=== PATIENT | female | born 1960 | race Caucasian/White ===

== ENCOUNTER → 2018-05-31 09:05 | Outpatient (CLI) | payer OTHER, SELFPAY ==
[2018-05-31 11:25] LABS: Estradiol < 11.0 pg/mL
[2018-06-01 09:55] LABS: Progesterone Level 1.01 ng/mL (See Comment)
== END ==
PROVIDERS: Visit Provider Obstetrics & Gynecology
DX: N95.1 Menopausal and female climacteric states (principal); R53.82 Chronic fatigue, unspecified
CPT/HCPCS: 36415; 82670; 84144

== ENCOUNTER → 2018-12-14 11:31 | Outpatient (CLI) | payer SELFPAY ==
[2018-12-14 12:49] LABS: Estradiol < 11.0 pg/mL
[2018-12-16 09:39] LABS: HPV Reflexed? NOT INDICATED
--- OUTSIDE RECORDS SUMMARY | 2019-02-18 07:40 | XMS RPT_ITS ---
:1960 Author Organization OH[facility] Care Team Providers Name Role Phone DARY ASH Admitting Unavailable DARY ASH Attending Unavailable DARY ASH Primary Care Unavailable DARY ASH Consulting Unavailable PROVIDER, UNKNOWN Consulting Unavailable Mojgan Hill Attending Unavailable Mojgan Hill Attending Unavailable PROBLEMS PROBLEMS DATE TYPE CONDITION / CODE ATTENDING STATUS SOURCE 12/14/2018 Unknown N95.1 - Mojgan Hill Active [facility] Menopausal and [facility] female [facility] climacteric Repository states / N95.1(ICD-10) 12/14/2018 Unknown Z12.4 - Encounter Mojgan Hill for screening for [facility] malignant [facility] neoplasm of Repository cervix / Z12.4(ICD-10) 05/31/2018 Unknown R53.82 - Chronic Mojgan Hill Active [place] fatigue, [facility] unspecified / Hospital R53.82(ICD-10) Repository PROCEDURES PROCEDURES No Procedure Records FoundRESULTS RESULTS ESTRADIOL Collected: 12/14/2018 Status: F Source: YEN 11:36 AM [facility] REPOSITORY TYPE CODE TESTS RESULT OUT OF RANGE REFERENCE UNITS LAB L3300.1750 pg/mL Normal ESTRADIOL < 11.0 Result Comment: NORMAL REFERENCE RANGES FEMALE FOLLICULAR 21.4 - 164.8 pg/mL MID-CYCLE PEAK 49.9 - 367.2 pg/mL LUTEAL 40.2 - 259.0 pg/mL POST-MENOPAUSAL ON MHT <11.0 - 462.1 pg/mL NOT ON MHT <11.0 - 58.3 pg/mL MALE <11.0 - 52.5 pg/mL NOTE: [facility] HAS CONFIRMED THE DRUG FULVETRANT (FASLODEX) MAY CAUSE FALSELY ELEVATED ESTRADIOL RESULTS WHEN USING THIS TEST METHOD. IF PATIENT IS TAKING FULVESTRANT AN ALTERNATIVE METHOD SHOULD BE USED TO DETERMINE ESTRADIOL CONCENTRATION. Performed By: #### L3300.1750 #### [facility] [address] [place], [place], [address] PROGESTERONE LEVEL Collected: 12/14/2018 Status: F Source: [place] 11:36 AM [facility] REPOSITORY TYPE CODE TESTS RESULT OUT OF REFERENCE UNITS RANGE LAB L509.4001 See Comment ng/mL Progesterone Normal 1.10 Result Comment: Progesterone Reference Table: UNITS Female: Follicular 0.15 - 1.40 ng/mL Luteal 3.34 - 25.56 ng/mL Mid-luteal 4.44 - 28.03 ng/mL Postmenopausal 0.0 - 0.73 ng/mL : 1st Trimester 11.22 - 90.00 ng/mL 2nd Trimester 25.55 - 89.40 ng/mL 3rd Trimester 48.40 -422.50 ng/mL Performed By: #### L509.4001 #### [facility] [address] [place], [address] PAP I-G W/RFX HRHPV Collected: 12/14/2018 Status: F Source: [place] 11:00 AM [facility] REPOSITORY Order Comment: CYTOLOGY INFORMATION: - CLINICAL INFORMATION: HYSTERECTOMY - DATE LMP/MENOPAUSE: - COLLECTION VIAL: Thin Prep Vial - CLOTH GRADER SOURCE: VAGINAL - COLLECTION TECHNIQUE: BRUSH/SPATULA Specimen Comment: [id number] Specimen Comment: Source.............Vagina Specimen Comment: LMP / Prev Treat...Hyst Specimen Comment: No. of containers..01 ThinPrep Vial TYPE CODE TESTS RESULT OUT OF RANGE REFERENCE UNITS LAB L7400.0800 . Normal DIAGN Comment Result Comment: NEGATIVE FOR INTRAEPITHELIAL LESION OR MALIGNANCY. LAB L7400.0900 . Normal ADEQ Comment Result Comment: Satisfactory for evaluation. No endocervical cells are present. This is consistent with a history of hysterectomy. LAB L7400.1400 . Normal PERFORM Comment Result Comment: Angeli White, Real Estate Closing Coordinator (ASCP) LAB L7400.2575 . Normal TEST METHOD Comment Result Comment: This liquid based ThinPrep(R) pap test was screened with the use of an image guided system. LAB L7400.2600 . Normal . COMM LAB L7400.2700 . Normal PAPSMR Comment Result Comment: The Pap smear is a screening test designed to aid in the detection of premalignant and malignant conditions of the uterine cervix. It is not a diagnostic procedure and should not be used as the sole means of detecting cervical cancer. Both false-positive and false-negative reports do occur. LAB L7400.2800 . Normal HPV RFLX Comment Result Comment: The HPV DNA reflex criteria were not met with this specimen result therefore, no HPV testing was performed. Performed at: - [address] [id number] Paper Inspector: Cathleen Alcantar MD, Phone: [phone] Performed By: #### L7400.0350 #### [facility] (refer to report for specific site) refer to report for address and phone number ESTRADIOL Collected: 05/31/2018 Status: F Source: [place] 9:16 AM [facility] REPOSITORY TYPE CODE TESTS RESULT OUT OF RANGE REFERENCE UNITS LAB L3300.1750 pg/mL Normal ESTRADIOL < 11.0 Result Comment: NORMAL REFERENCE RANGES FEMALE FOLLICULAR 21.4 - 164.8 pg/mL MID-CYCLE PEAK 49.9 - 367.2 pg/mL LUTEAL 40.2 - 259.0 pg/mL POST-MENOPAUSAL ON MHT <11.0 - 462.1 pg/mL NOT ON MHT <11.0 - 58.3 pg/mL MALE <11.0 - 52.5 pg/mL NOTE: [facility] HAS CONFIRMED THE DRUG FULVETRANT (FASLODEX) MAY CAUSE FALSELY ELEVATED ESTRADIOL RESULTS WHEN USING THIS TEST METHOD. IF PATIENT IS TAKING FULVESTRANT AN ALTERNATIVE METHOD SHOULD BE USED TO DETERMINE ESTRADIOL CONCENTRATION. Performed By: #### L3300.1750 #### [facility] [address] [place], [address] PROGESTERONE LEVEL Collected: 05/31/2018 Status: F Source: YEN 9:16 AM [facility] REPOSITORY TYPE CODE TESTS RESULT OUT OF REFERENCE UNITS RANGE LAB L509.4001 See Comment ng/mL Progesterone Normal 1.01 Result Comment: Progesterone Reference Table: UNITS Female: Follicular 0.15 - 1.40 ng/mL Luteal 3.34 - 25.56 ng/mL Mid-luteal 4.44 - 28.03 ng/mL Postmenopausal 0.0 - 0.73 ng/mL : 1st Trimester 11.22 - 90.00 ng/mL 2nd Trimester 25.55 - 89.40 ng/mL 3rd Trimester 48.40 -422.50 ng/mL Performed By: #### L509.4001 #### [facility] [address] [place], [address] CV STRESS ECHO Observed: 01/24/2018 Status: F Source: [employer] T[place]LL 11:10 AM [place] [address] Patient: ARIA ALVARENGA Phone#: : 1960 Age: 57 Gender: F Pt. Type: Out Account: [id number] Location: Ordering: [facility] Exam Date: 01/24/2018/9:52 Family Phys: [facility] Charge Code: [id number] Physician: [place] Order #: [id number] DLP Dose#: PROCEDURE: STRESS TREADMILL ECHOCARDIOGRAM HISTORY: See below INDICATIONS: Hypertension, family history of heart disease TECHNIQUE: Two-phase echocardiogram examining and comparing left ventricular wall segments before stress and after stress accomplished by using treadmill exercise. AIRCRAFT PILOT and RN: TARIK/MISSAEL STRESS RESULTS Protocol: Jt Duration of Stress: 10:00 minutes. Stress Discontinued Due to: FATIGUE Resting Heart Rate: 85 bpm. Resting Blood Pressure: 163/95 mmHg Peak Heart Rate: 169 which is 104 % of maximum predicted heart rate. Peak Blood Pressure: 197/98 occurring at 01:30 in the recovery phase Workload: 11.70 METs. SYMPTOMS WITH STRESS: No chest pain or discomfort. RESTING EKG: Sinus rhythm, rate 83. Normal axis. Baseline ST changes in the inferior and lateral precordial leads. STRESS EKG: Less than [address] changes noted in these leads. WALL MOTION: RESTING STRESS 1 - Basal anterior: Normal. Normal. 2 - Basal anteroseptal: Normal. Normal. 3 - Basal inferoseptal: Normal. Normal. 4 - Basal inferior: Normal. Normal. 5 - Basal inferolateral: Normal. Normal. 6 - Basal anterolateral: Normal. Normal. 7 - Mid anterior: Normal. Normal. Continued Report - Page 2 of 2 Patient: ARIA ALVARENGA Phone#: : 1960 Age: 57 Gender: F Pt. Type: Out Account: [id number] Location: Ordering: [facility] Exam Date: 01/24/2018/9:52 Family Phys: [facility] Charge Code: [id number] Physician: [place] Order #: [id number] DLP Dose#: 8 - Mid anteroseptal: Normal. Normal. 9 - Mid inferoseptal: Normal. Normal. 10-Mid inferior: Normal. Normal. 11-Mid inferolateral: Normal. Normal. 12-Mid anterolateral: Normal. Normal. 13-Apical anterior: Normal. Normal. 14-Apical septal: Normal. Normal. 15-Apical inferior: Normal. Normal. 16-Apical lateral: Normal. Normal. Ejection fraction 55-60%. 60-65%. CONCLUSION: 1. No chest pain or discomfort with a good exercise capacity. 2. Baseline repolarization changes on the electrocardiogram with no additional changes considered diagnostic for ischemia. 3. Normal stress echocardiogram with no inducible wall motion abnormalities. Improved contractility in all wall segments. Dictated by: Josue Torres MD on 01/24/2018 at 11:24 Approved by: Josue Torres MD on 01/24/2018 at 11:24 ALLERGIES ALLERGIES No Allergies Records FoundENCOUNTERS ENCOUNTERS ADMIT/DISCHARGE ACCOUNT ADMITTING ENCOUNTER LOCATION SOURCE NUMBER CLASS 12/14/2018 [id number] Ambulatory [address] ing:[place] Repository 05/31/2018 [id number] Ambulatory Yen Yen [facility] ing:[place] Repository 01/24/2018/ [id number] [place], Ambulatory [address] Repository PAYERS PAYERS ENCOUNTER GUARANTOR PAYER SUBSCRIBER SOURCE 12/14/2018 Judith Augustine Primary Insurance:SELF NOT GIVENUNK [place] [id number] PAY [address], Number: [facility] [id number]: Date:2018-12-14 Repository () 05/31/2018 Judith Augustine Primary ARIA MASTDOB: [place] [id number] Insurance:MINE [id number] [address]Qey: [facility] Repository Number: (YA) [id number] Date: [place], [place] [address]VV: 05/31/2018 Secondary NOT GIVENUNK Yen Insurance:SELF PAY [facility] Number: Effective Repository Date:2018-05-31
== END ==
PROVIDERS: Visit Provider Obstetrics & Gynecology
DX: Z12.4 Encounter for screening for malignant neoplasm of cervix (principal); Z78.0 Asymptomatic menopausal state
CPT/HCPCS: 36415; 82670; 84144; 88175; G0145

== ENCOUNTER → 2019-01-25 16:22 | Outpatient (CLI) | payer SELFPAY ==
--- NOTE | 2019-01-25 16:27 | BI_ITS ---
MAMMOGRAPHY - BILATERAL SCREENING REASON FOR EXAM: Female, 58 years old. Routine annual screening examination. PERTINENT HISTORY: Grandmother with breast cancer. Remote right stereotactic breast biopsies. TECHNIQUE: Digital bilateral breast jackson (3D mammographic acquisition) in the CC and MLO projections. 2-D mediolateral oblique (MLO) and craniocaudad (CC) views of both breasts were obtained. CAD: Full Field Digital Mammography with Computer Added Detection was performed. COMPARISON: Comparison is made with prior study dated September 08, 2016 and September 06, 2015. FINDINGS: Breast Composition: The breasts are almost entirely fatty. There are no dominant masses or suspicious calcifications. Stable well-defined 6.7 mm nodule in the upper outer aspect of the left breast. This was demonstrated to be a cyst on prior ultrasound. No other significant abnormalities are identified. There has been no significant change since the prior study. BI/SCREENING MAMM (CAD), BILAT IMPRESSION: Stable bilateral screening mammogram. Yearly follow-up mammogram recommended. (A) ASSESSMENT CATEGORY: BIRADS Category 2: Benign. A letter regarding these results will be sent to the patient by the facility within 30 days. Approximately 10% of breast cancers are not detected by mammography. A normal mammogram should not delay biopsy of a clinically suspicious abnormality. [id number] Electronically Signed: Hiram Norwood, at 8:25 EST , Service support ,
== END ==
PROVIDERS: Family Provider Family Medicine; PCP Family Medicine; Referring Provider Obstetrics & Gynecology; Visit Provider Obstetrics & Gynecology
DX: Z12.31 Encounter for screening mammogram for malignant neoplasm of breast (principal); Z80.3 Family history of malignant neoplasm of breast
CPT/HCPCS: 77063; 77067

== ENCOUNTER → 2019-11-15 13:12 | Outpatient (CLI) | payer SELFPAY ==
[2019-11-15 16:22] LABS: Progesterone Level 0.33 ng/mL (See Comment)
== END ==
PROVIDERS: Visit Provider Obstetrics & Gynecology
DX: N95.1 Menopausal and female climacteric states (principal)
CPT/HCPCS: 36415; 82670; 84144

== ENCOUNTER → 2020-12-18 12:29 | Outpatient (CLI) | payer SELFPAY ==
[2020-12-18 14:10] LABS: Estradiol 15.6 pg/mL
== END ==
PROVIDERS: Visit Provider Obstetrics & Gynecology
DX: N95.1 Menopausal and female climacteric states (principal)
CPT/HCPCS: 36415; 82670; 84144

== ENCOUNTER 2022-01-14 14:07 | Outpatient (CLI) | payer SELFPAY ==
[2022-01-14 14:53] LABS: Estradiol 11.8 pg/mL
[2022-01-14 15:38] LABS: Progesterone Level 0.52 ng/mL (See Comment)
== END 2022-01-14 23:59 | disposition home or self-care (01) ==
LOC: WOBLAB 14:07
PROVIDERS: Visit Provider Obstetrics & Gynecology
DX: N95.1 Menopausal and female climacteric states (principal)
CPT/HCPCS: 36415; 82670; 84144

== ENCOUNTER 2022-02-10 12:05 | Outpatient (CLI) | payer SELFPAY ==
--- NOTE | 2022-02-10 12:13 | BI_ITS ---
MAMMOGRAPHY - BILATERAL SCREENING 3-D TOMOSYNTHESIS REASON FOR EXAM: Female, 61 years old. SCREENING PERTINENT HISTORY: No significant family history. TECHNIQUE: 2-D mammograms and 3-D Tomosynthesis of the breast (s) were performed. CAD was performed. COMPARISON: 01/25/2019 FINDINGS: The breast composition is composed of scattered fibroglandular density. Scattered benign calcifications are seen. No dense spiculated masses or suspicious microcalcifications are identified. No architectural distortion is identified. There is no skin thickening or retraction. There has been no significant change since the prior study. BI/SCRN MAMM (CAD)W/PETER BILAT IMPRESSION: No mammographic signs of malignancy. Routine yearly mammograms recommended. ASSESSMENT CATEGORY: BIRADS Category 1: Negative. A letter regarding these results will be sent to the patient by the facility within 30 days. FOLLOW UP RECOMMENDATION: Yearly follow up mammogram recommended. (A) Approximately 10% of breast cancers are not detected by mammography. A normal mammogram should not delay biopsy of a clinically suspicious abnormality. Electronically Signed: Mitchell Mosquera MD at 17:34 EDT ,
== END 2022-02-10 23:59 | disposition home or self-care (01) ==
PROVIDERS: PCP Family Medicine; Visit Provider Obstetrics & Gynecology
DX: Z12.31 Encounter for screening mammogram for malignant neoplasm of breast (principal)
CPT/HCPCS: 77063; 77067

== ENCOUNTER → 2023-05-10 | Outpatient (CLI) | payer SELFPAY ==
[2023-05-10 15:26] LABS: Absolute Neutrophil Count 4.4 X10^3/uL (2.0-7.7); Basophil# 0.06 X10^3/uL; Basophil% 0.7 % (0-1); Eosinophil# 0.08 X10^3/uL; Hematocrit 45.8 % (37-47); Hemoglobin 14.9 g/dL (12.0-15.0); Lymphocyte % 37.3 % (19-41); Mean Corp Hgb Conc 32.5 g/dL (32-36); Mean Corpuscular Hgb 31.4 pg (27.0-32.0); Mean Corpuscular Volume 96.4 fL (81-99); Mean Platelet Vol. 10.6 fl (6.2-12.0); Monocyte# 0.72 X10^3/uL; Monocyte% 8.7 % (0-10); NRBC Flagged by Analyzer 0 % (0-5); Neutrophil # 4.35 X10^3/uL (2.7-7.7); Neutrophil % 52.2 % (47-70); Platelet Count 232 K/mm3 (150-450); RBC Distribution Width CV 13.7 % (11.6-14.6); RBC Distribution Width SD 49.1 fl (35.1-43.9); Red Blood Count 4.75 M/mm3 (4.2-5.4); White Blood Count 8.3 K/mm3 (4.4-11.0)
[2023-05-10 15:43] LABS: AST(SGOT) 19 U/L (15-37); Alanine Aminotransfer ALT/SGPT 26 U/L (13-56); Albumin, Serum 3.9 g/dL (3.2-5.0); Alkaline Phosphatase 55 U/L (45-117); Anion Gap 6 (5-15); BUN 13 mg/dL (7-18); BUN/Creat Ratio 18.7 RATIO (10-20); Calcium,Total 9.6 mg/dL (8.5-10.1); Chloride 105 mmol/L (98-107); EST Glomerular Filtration Rate 90 mL/min (>60); Est Glom Filt Rate - Afr Amer 109 mL/min (>60); Globulin 3.8 g/dL (2.2-4.2); Glucose 92 mg/dL (74-106); Potassium 4.7 mmol/L (3.5-5.1); Protein, Total 7.7 g/dL (6.4-8.2); Sodium Level 137 mmol/L (136-145)
[2023-05-12 07:08] LABS: HSV 2 IgG < 0.91 index (0.00-0.90); Immunoglobulin G 986 mg/dL (586-1602); Immunoglobulin M 139 mg/dL (26-217); V-Zoster IgG (Immunity) 2195 index (Immune >165)
== END | disposition home or self-care (01) ==
PROVIDERS: PCP Family Medicine; Referring Provider Dermatology Pediatric Dermatology; Visit Provider Dermatology Pediatric Dermatology
DX: L08.9 Local infection of the skin and subcutaneous tissue, unspecified (principal); L21.8 Other seborrheic dermatitis; L82.1 Other seborrheic keratosis; D18.01 Hemangioma of skin and subcutaneous tissue
CPT/HCPCS: 36415; 80053; 82784; 85025; 86695; 86696; 86787

== ENCOUNTER → 2023-11-30 | Outpatient (CLI) | payer MEDICARE, OTHER, SELFPAY ==
--- NOTE | 2023-11-30 14:31 | BI_ITS ---
MAMMOGRAPHY - BILATERAL SCREENING REASON FOR EXAM: Female, 63 years old. Routine annual screening examination. PERTINENT HISTORY: Grandmother with breast cancer. Remote right stereotactic breast biopsy and excisional breast biopsy. TECHNIQUE: Digital bilateral breast peter (3D mammographic acquisition) in the CC and MLO projections. 2-D mediolateral oblique (MLO) and craniocaudad (CC) views of both breasts were obtained. CAD: Full Field Digital Mammography with Computer Added Detection was performed. COMPARISON: Comparison is made with prior study of February 10, 2022 and September 24, 2019. FINDINGS: Breast Composition: The breasts are almost entirely fatty. There are no dominant masses or suspicious calcifications. No other significant abnormalities are identified. There has been no significant change since the prior study. BI/SCRN MAMM (CAD)W/PETER BILAT IMPRESSION: Stable bilateral screening mammogram. Yearly follow-up mammogram recommended. (A) ASSESSMENT CATEGORY: BIRADS Category 1: Negative. A letter regarding these results will be sent to the patient by the facility within 30 days. Approximately 10% of breast cancers are not detected by mammography. A normal mammogram should not delay biopsy of a clinically suspicious abnormality. [id number] Electronically Signed: Hiram Norwood MD at 11:32 EST ,
--- NOTE | 2023-11-30 14:33 | BD_ITS ---
STUDY: DUAL ENERGY X-RAY ABSORPTIOMETRY / DXA REASON FOR EXAM: Female, 63 years old. Z780 TECHNIQUE: Bone Mineral Density (BMD) measurements of lumbar spine and bilateral hips were obtained. COMPARISON: None. FINDINGS: Lumbar Spine (L1-L4): g/cm2 (1.028) / T-score (-0.2) / Z-score (1.6) Findings are suggestive of normal bone density with a low fracture risk. Left Femur Total: g/cm2 (0.899) / T-score (-0.4) / Z-score (0.9) Left Femoral Neck: g/cm2 (0.755) / T-score (-0.8) / Z-score (0.7) Right Femur Total: g/cm2 (0.945) / T-score (0.0) / Z-score (1.3) Right Femoral Neck: g/cm2 (0.826) / T-score (-0.2) / Z-score (1.3) BD/Dexa Bone Density Study IMPRESSION: The patient is considered normal as outlined below according to World Augie Organization (WHO) criteria with a low fracture risk. . Reference Information: The T-score is the number of standard deviations above or below the standard which is normal for young adults at their peak bone mineral density. The World Health Organization (WHO) interprets the T-scores as follows: Above -1 Normal bone density Between -1 and -2.5 Osteopenia Equal to / or below -2.5 Osteoporosis As a practical clinical guideline, osteopenia may be graded as follows: Mild -1 through -1.5 Moderate -1.6 through -2.0 Severe -2.1 through -2.4 The Z-score is the number of standard deviations above or below age-matched controls. A Z-score of less than -1.5 would be considered abnormal. References: 1. NIH Osteoporosis and Related Bone Diseases www osteo.org 2. International Society for Clinical Densitometry www iscd.org 3. National Osteoporosis Foundation www nof.org Electronically Signed: Hiram Norwood MD at 14:41 EST ,
== END | disposition home or self-care (01) ==
LOC: OPBD 14:27
PROVIDERS: PCP Family Medicine; Referring Provider Family Medicine; Visit Provider Family Medicine
DX: Z13.820 Encounter for screening for osteoporosis (principal); Z78.0 Asymptomatic menopausal state; Z12.31 Encounter for screening mammogram for malignant neoplasm of breast
CPT/HCPCS: 77063; 77067; 77080

== ENCOUNTER → 2024-12-28 | Outpatient (CLI) | payer MEDICARE, OTHER, SELFPAY ==
--- NOTE | 2024-12-28 12:21 | BI_ITS ---
PROCEDURE: SCRN MAMM (CAD)W/PETER BILAT REASON FOR EXAM: F, Age 64 y/o, routine follow-up. Prior right stereotactic breast biopsy and right excisional breast biopsy. Grandmother with breast cancer. TECHNIQUE: Bilateral screening digital breast tomosynthesis with 2D and 3D images. Computer aided detection. COMPARISON: Prior exam(s) dating back to November 30, 2023.. FINDINGS: The breasts are almost entirely fatty. Stable examination. No suspicious masses, areas of developing architectural distortion, or suspicious calcifications. BI/SCRN MAMM (CAD)W/PETER BILAT IMPRESSION: BI-RADS 1: NEGATIVE. RECOMMEND ANNUAL MAMMOGRAPHIC SCREENING. Follow-up code: Routine Follow-up The patient will be notified of the results by letter. Reading Location: [place] [address]
== END | disposition home or self-care (01) ==
LOC: OPBI 12:20
PROVIDERS: PCP Family Medicine; Referring Provider Family Medicine; Visit Provider Family Medicine
DX: Z12.31 Encounter for screening mammogram for malignant neoplasm of breast (principal)
CPT/HCPCS: 77063; 77067

== ENCOUNTER → 2025-02-21 | Outpatient (CLI) | payer MEDICARE, OTHER, SELFPAY ==
--- NOTE | 2025-02-21 07:03 | ECHOD_ITS ---
Reason For Study Reason For Study: Chest pain, Abn EKG Procedure This was a 2D Doppler, Color Flow transthoracic echocardiogram. Exam performed in department. Left Ventricle Normal LV size. Left ventricular systolic function is normal. The left ventricular ejection fraction is 55 %. No regional wall motion abnormalities noted. Right Ventricle Normal RV size. Normal systolic function. Atria Normal left atrium. Normal right atrium. Mitral Valve Normal mitral valve. Tricuspid Valve Normal tricuspid valve. Aortic Valve Trisinus/trileaflet aortic valve. Pulmonic Valve Normal pulmonic valve. Great Vessels Normal aortic root. The pulmonary artery is normal size. Inferior vena cava collapse with respiration. Pericardium/Pleural No pericardial effusion. MMode/2D Measurements & Calculations LVIDd: 4.5 cm IVSd: 0.94 cm Ao root diam: 2.8 cm LVIDs: 3.1 cm LVPWd: 1.0 cm RVDd: 3.0 cm FS: 30.0 % LAV(MOD-bp): 26.0 ml LVAd ap4: 23.3 cm2 LVAd ap2: 21.6 cm2 LAV(MOD-bp) Indexed: 15.3 ml/m2 LVLd ap4: 6.9 cm LVLd ap2: 7.5 cm LAV(MOD-sp2): 28.6 ml EDV(MOD-sp4): 66.9 ml EDV(MOD-sp2): 54.4 ml LAV(MOD-sp4): 20.5 ml EDV(sp4-el): 67.4 ml EDV(sp2-el): 53.2 ml LVAs ap4: 14.7 cm2 LVAs ap2: 13.8 cm2 LVLs ap4: 6.1 cm LVLs ap2: 6.9 cm ESV(MOD-sp4): 31.3 ml ESV(MOD-sp2): 24.6 ml ESV(sp4-el): 30.2 ml ESV(sp2-el): 23.4 ml EF(MOD-sp4): 53.2 % EF(MOD-sp2): 54.7 % EF(sp4-el): 55.2 % SV(MOD-sp4): 35.6 ml SV(MOD-sp2): 29.7 ml SV(sp4-el): 37.2 ml SI(MOD-sp4): 21.0 ml/m2 SI(MOD-sp2): 17.5 ml/m2 LA A4 area: 11.6 cm2 LA dimension(2D): 3.0 cm RA A4 area: 10.6 cm2 TAPSE: 2.1 cm Time Measurements MV dec time: 0.28 sec Doppler Measurements & Calculations MV E max thien: 54.3 cm/sec Lat Peak E' Thien: 6.4 cm/sec Med Peak E' Thien: 6.1 cm/sec MV A max thien: 68.1 cm/sec E/E' lat: 8.5 E/E' med: 8.9 MV E/A: 0.80 Ao V2 max: 108.4 cm/sec LV V1 max: 78.5 cm/sec MV dec slope: 191.9 cm/sec2 Ao max P.7 mmHg LV V1 max P.5 mmHg Ao V2 mean: 77.5 cm/sec LV V1 mean P.4 mmHg Ao mean P.6 mmHg LV V1 mean: 56.0 cm/sec Ao V2 VTI: 23.0 cm LV V1 VTI: 18.2 cm AV (velocity ratio): 0.79 PA V2 max: 93.3 cm/sec ECHO/Echo Complete Interpretation Summary Normal LV size. Left ventricular systolic function is normal. The left ventricular ejection fraction is 55 %. Structurally normal valves. Ordering Physician: Iveth Boo Referring Physician: Iveth Boo Performed By: Ida Goel RDCS
--- NOTE | 2025-02-21 18:08 | STRESSREP ---
Stress Test Report Exercise myocardial perfusion stress test. 64-year-old lady with a history of chest pain Stress protocol: Resting EKG demonstrates normal sinus rhythm with a rate of 63 bpm resting blood pressure is 152/80 mmHg. The patient exercised according to the regular Jt protocol for a total duration of 8 minutes attaining a maximum heart rate of 146 bpm which was 94% of maximum predicted heart rate; the maximum workload was 10.1 metabolic equivalents. At rest there were no ST or T wave changes noted to suggest ischemia and at peak exercise upsloping ST changes only were noted which did not meet the criteria for ischemia. No clinical angina was noted the test was terminated due to the target heart rate being achieved/fatigue. The peak blood pressure was 162/88 mmHg. Rate-pressure product was 17,900. Myocardial perfusion protocol. 11.3 mCi of technetium 99m sestamibi was injected at rest. The patient exercised according to regular Jt protocol for total duration of 8 minutes and at peak exercise 34.2 mCi of technetium 99m sestamibi was injected stress images were obtained stress and rest images were reconstructed in comparing the short axis vertical long and horizontal long axis. Gated images were also obtained. Perfusion SPECT analysis: Review of the stress images demonstrate normal uptake of tracer noted in all areas of the myocardium. The resting images similarly demonstrate normal uptake of tracer noted in all areas of the myocardium. No areas of reversibility are noted to suggest ischemia no previous infarct was noted. Gated SPECT analysis: The gated ejection fraction is 70%. Conclusion: Normal exercise myocardial perfusion stress test at a high workload Preserved ejection fraction.
== END | disposition home or self-care (01) ==
LOC: CVS 07:00
PROVIDERS: PCP Family Medicine; Referring Provider Family Medicine; Visit Provider Family Medicine
DX: R94.31 Abnormal electrocardiogram [ECG] [EKG] (principal)
CPT/HCPCS: 78452; 93017; 93306; A9500